=== PATIENT | male | born 1980 | race Caucasian/White ===

== ENCOUNTER 2017-04-30 02:39 | Emergency (ER) | payer OTHER ==
[~2017-04-30] VITALS: Ht 185.4 cm; Wt 127.0 kg
[2017-04-30 03:08] VITALS: BP 149/87
== END 2017-04-30 06:04 | disposition left against medical advice (07) ==
LOC: ER 02:39
DX: M54.9 Dorsalgia, unspecified (principal); Z53.21 Procedure and treatment not carried out due to patient leaving prior to being seen by health care provider
CPT/HCPCS: 71250; 74176